=== PATIENT | female | born 1990 | race Caucasian/White ===

== ENCOUNTER 2019-09-18 15:06 | Inpatient (IN) | payer OTHER ==
[~2019-09-18] VITALS: Ht 177.8 cm; Wt 3.2 kg
[~2019-09-18 15:06] MED LIST: ADDERALL 30 MG30 MG PO; CELEBREX100 MG PO
[2019-10-02] MEDS ORDERED: PROBIOTIC1 EAC2 PO (18:08)
[2019-10-02] MEDS ORDERED: PRENATAL TABLE1 EAC1 PO (18:08)
[2019-10-02] MEDS ORDERED: ROBITUSSIN15 MG PO (18:09)
== END 2019-10-06 17:53 | disposition home or self-care (01) | DRG 788 ==
LOC: LDR 10-02 17:18 → OB/GYN 10-03 16:00 → LDR 10-28 14:45
PROVIDERS: Obstetrics & Gynecology; ADMIT Obstetrics & Gynecology Maternal & Fetal Medicine
PROC: 3E0P7VZ Introduction of Hormone into Female Reproductive, Via Natural or Artificial Opening (ICD-10-PCS; 2019-10-02)
PROC: 4A1HXCZ Monitoring of Products of Conception, Cardiac Rate, External Approach (ICD-10-PCS; 2019-10-02)
PROC: 3E033VJ Introduction of Other Hormone into Peripheral Vein, Percutaneous Approach (ICD-10-PCS; 2019-10-03)
PROC: 10D00Z1 Extraction of Products of Conception, Low, Open Approach (ICD-10-PCS; principal; 2019-10-03 14:00)
DX: O64.8XX0 Obstructed labor due to other malposition and malpresentation, not applicable or unspecified (principal); Z3A.39 39 weeks gestation of pregnancy; Z37.0 Single live birth